=== PATIENT | female | born 2000 | race Caucasian/White ===

== ENCOUNTER 2023-01-17 03:27 | Inpatient (IN) | payer MEDICAID, SELFPAY ==
[2023-01-17] VITALS (41 sets, daily range): BP systolic 98–126; BP diastolic 52–69; PULSE 73–118; RESP 16; TEMP 36.3–37.4; O2SAT 97–99; BMI 23.4
[2023-01-17] MEDS: LACTATED RINGERS 500 ML 999 ML IV (03:45)
--- NOTE | 2023-01-17 03:58 | PCM.HP.OB ---
HPI - General General Date of Admission: 01/17/23 Date of Service: 01/17/23 HPI Narrative VALENTE MAURICE, is a 23 F who presents in labor. She reports leaving a hospital in [facility] as she wanted to be closer to home. Maternal Data Information Final DEBI: 03/04/23 Gestational age: 32&2 PFSH PFSH Medical History no medical history no medical history Home Medications vit no.95-ferrous fumarate 28 mg-folic acid 800 mcg tablet () 1 tab PO DAILY 01/17/23 [History Last Taken Unknown] Allergy/AdvReac Type Severity Reaction Status Date / Time No Known Allergies Allergy Verified 01/17/23 04:09 Social History Smoking Status: Never smoker History Elective abortions Hx Para 0 Spontaneous abortions Hx # Term Pregnancies Ectopic pregnancies Hx # Pregnancies Multiple births # of living children NST FHR Rate Baby A Baseline: 120 Variability:: Moderate Accelerations:: 15 x 15 Decelerations:: None Uterine Activity:: quiet Vital Signs Vital Signs Vital Signs: 01/17/23 03:31 01/17/23 03:31 01/17/23 03:36 Pulse Rate 113 H 117 H Pulse Ox 98 01/17/23 03:36 01/17/23 03:41 01/17/23 03:41 Pulse Rate 115 H Pulse Ox 98 98 01/17/23 03:46 01/17/23 03:46 01/17/23 03:51 Pulse Rate 111 H 118 H Pulse Ox 98 01/17/23 03:51 01/17/23 03:56 01/17/23 03:56 Pulse Rate 102 H Pulse Ox 99 99 Weight Weight: 145 lb 1.027 oz Body Mass Index (BMI) 23.4 Physical Exam Const alert, oriented x3 and no apparent distress Chest inspection of chest normal Resp normal respiratory effort GI soft to palpation, non-tender and non-distended Inspection: gravid external exam normal Narrative: cvx - /0 Labs Labs Labs: Blood Type O POSITIVE Antibody Screen NEGATIVE Hct 37.2 % (37-47) Hgb 12.1 g/dL (12.0-15.0) Syphilis Total Ab Non-reactive Rubella IgG Antibody Reactive (Nonreactive) Hep Bs Antigen Non-Reactive (Nonreactive) HIV 1&2 Antibody Non-Reactive (Nonreactive) Group B Strep DNA POSITIVE (Negative) H Assessment & Plan (1) labor in third trimester: QUALIFIERS: Fetus number: single or unspecified fetus labor delivery status: with delivery in third trimester Qualified Code(s): O60.14X0 - labor third trimester with delivery third trimester, not applicable or unspecified COMMENT: 32&2 PLAN: Plan Admit to L&D GBS unknown - start pcn Expectant management FWB - BMZ#1 given & will given 2nd dose. notified & aware of likely imminent delivery. Obtain records & [place] hospital records
[2023-01-17 04:03] LABS: Bacteria 0 SEEN /hpf (None Seen); Mucous, Urine 0 SEEN /hpf (<or=2+); Squamous Epithelial Cells - UA 0 SEEN /hpf (5-10)
[2023-01-17 04:04] LABS: Absolute Lymphocyte Count 1.17 X10^3/uL (0.83-4.51); Absolute Neutrophil Count 14.8 X10^3/uL (2.0-7.7); Basophil# 0.03 X10^3/uL; Basophil% 0.2 % (0-1); Hematocrit 37.2 % (37-47); Hemoglobin 12.1 g/dL (12.0-15.0); Lymphocyte # 1.17 X10^3/ul (0.83-4.51); Lymphocyte % 6.9 % (19-41); Mean Corp Hgb Conc 32.5 g/dL (32-36); Mean Corpuscular Hgb 29.8 pg (27.0-32.0); Mean Corpuscular Volume 91.6 fL (81-99); Mean Platelet Vol. 10.7 fl (6.2-12.0); Monocyte# 0.75 X10^3/uL; Monocyte% 4.4 % (0-10); NRBC Flagged by Analyzer 0 % (0-5); Neutrophil # 14.82 X10^3/uL (2.7-7.7); Neutrophil % 87.3 % (47-70); Platelet Count 222 K/mm3 (150-450); RBC Distribution Width CV 12.1 % (11.6-14.6); RBC Distribution Width SD 40.6 fl (35.1-43.9); Red Blood Count 4.06 M/mm3 (4.2-5.4)
[2023-01-17 04:09] LABS: Color, Urine Yellow (Yellow); Glucose, Dipstick 1000 mg/dl (Normal); Ketone-Dipstick 15 mg/dl (Negative); Leukocyte Esterase-Dipstick 25 /ul (Negative); Nitrite-Dipstick Negative (Negative); Occult Blood-Urine 250 /ul (Negative); Protein-Dipstick 30 mg/dl (Negative); Specific Gravity, Urine 1.015 (1.002-1.030); Urine Bilirubin Dipstick Negative (Negative); Urine Clarity Clear (Clear); Urine Urobilinogen Normal (Normal); Urine pH 6.5 (5.0 - 8.0)
[2023-01-17 04:31] LABS: Red Blood Cells-Urine 25-50 SEEN /hpf (0-5); White Blood Cells 0-5 SEEN /hpf (0-5)
[2023-01-17 04:33] LABS: Amphetamine Urine VISTA NEGATIVE (<1000 ng/mL); Barbiturate Urine VISTA NEGATIVE (< 200 ng/mL); Benzodiazepine Urine VISTA NEGATIVE (< 200 ng/mL); Cocaine Urine VISTA NEGATIVE (< 300 ng/mL); Ecstacy Urine VISTA NEGATIVE (< 500 ng/mL); Methadone Urine VISTA NEGATIVE (< 300 ng/mL); PCP Urine VISTA NEGATIVE (< 25 ng/mL); THC Urine VISTA NEGATIVE (< 50 ng/mL); Vista UDS pH Range 6
[2023-01-17] MEDS: Lactated Ringers 1,000 ML 200 ML IV ×2 (04:56→07:59)
[2023-01-17] MEDS: Betamethasone/Betamethasone 30 MG/5 ML Vial 12 MG IM (05:04)
[2023-01-17 05:14] LABS: HIV - WCH Non-Reactive (Nonreactive); Rubella IgG Reactive (Nonreactive); Syphilis Antibodies Non-reactive
[2023-01-17 05:15] LABS: Group B Strep DNA By PCR POSITIVE (Negative); Probe Check PASS
[2023-01-17 05:29] LABS: Hepatitis B Surface Antigen Non-Reactive (Nonreactive); Hepatitis C Antibody Non-Reactive (Nonreactive)
[2023-01-17 07:01] LABS: Bedside Glucose 128 mg/dL (74-106)
[2023-01-17 07:06] LABS: Bedside Glucose 113 mg/dL (74-106)
[2023-01-17] MEDS: Oxytocin 15 Units/NS 250ml 15 UNITS/250 ML IV.SOLN 334 UNITS IV (09:17)
[2023-01-17] MEDS: Lidocaine 1% (20 ml mdv) 20 ML Vial INFILT (09:26)
--- NOTE | 2023-01-17 09:31 | EX.PCM.OBRPT ---
Maternal Data Information Final DEBI: 03/11/23 Gestational age: 32&2 Vaginal Delivery Maternal Presentation Maternal Presentation: Active Labor Operative Information Date of Procedure: 01/17/23 Pre-Operative Diagnosis: labor Post-Operative Diagnosis: Same Surgery / Procedure Performed: Spontaneous Vaginal Delivery Type of Anesthesia: Local with 1% Lidocaine Estimated Blood Loss: 300ml Findings Description of Procedure: Patient prepped & draped when C/C/+2. She pushed well to deliver the head. head gently guided to allow delivery of anterior and posterior shoulders. No excess traction placed on head. Body delivered and 3VC clamped & cut in delayed fashion. Placenta delivered with gentle traction and good uterine tone obtained. Presentation: Vertex Amniotic Membrane Rupture Type: Artificial Amniotic Fluid Description: Clear Placental Delivery Description: Expressed Placenta Disposition: [facility] Specimen(s) Removed: Placenta Cord Vessel Description: 3 Vessels Cord Entanglement: True Knot(s) (1 that was loose) A Gender: Male (1 minute): 8 (5 minute): 9 Delayed Cord Clamping: No Post Vaginal Delivery Medications Given After Delivery: IV Pitocin Episiotomy Description: None Laceration: 1st degree (repaired with 3-0 vicryl) Complication Complications: None
[2023-01-17] MEDS: Ketorolac 30 MG/ML Syringe IV (09:38)
--- NOTE | 2023-01-17 10:30 | NURSING ---
1030- IBCLC in room to initiate breast pump. [facility] double breast pump brought to room. Family shown how to use pump, including what settings are appropriate. Pt. pumped both breasts for 15 minutes for first pump session. 3 swabs of colostrum collected. IBCLC then taught and encouraged pt to do hand expression, and an additional 1cc collected. All swabs and syringe taken to in SCN. Pt. encouraged to pump every 3 hours for 15-25 minutes.
--- NOTE | 2023-01-17 15:55 | NURSING ---
patient voided in toilet. unable to assess amount.
[2023-01-18 04:25] VITALS: BP 97/53; PULSE 75; RESP 16; TEMP 37.1
[2023-01-18 04:26] VITALS: BP 97/53; PULSE 75
--- NOTE | 2023-01-18 07:14 | PN.OBGYN_ITS ---
Subjective Subjective Patient seen at bedside. Feeling good. Denies any pain. Desires discharge home today. Objective Data Objective Data Vital Signs: Vital Signs Temp Pulse Resp BP Pulse Ox O2 Del Method 98.8 F 75 16 97/53 L 97 Room Air 01/18/23 04:25 01/18/23 04:26 01/18/23 04:25 01/18/23 04:26 01/17/23 15:52 01/17/23 15:52 Oxygen Delivery Method Room Air Weight: 145 lb 1.027 oz Body Mass Index (BMI) 23.4 Intake & Output: Intake and Output for Last 24 Hours 01/16/23 01/17/23 01/18/23 23:59 23:59 23:59 Intake Total 1735 / 1735 Output Total 300 / 300 Balance 1435 / 1435 Lab / Micro Data 01/17/23 03:45 Micro: Microbiology 01/17/23 05:30 Urine, Clean Catch Chlamydia trachomatis (PCR) - Final 01/17/23 05:30 Urine, Clean Catch Neisseria gonorrhoeae (PCR) - Final ROS Eyes Eyes: Denies blurry vision, change in vision or spots in vision ENT HEENT: Denies dizziness or headache(s) Cardiovascular Cardiovascular: Denies abdominal pain, chest pain or dyspnea Respiratory/Chest Respiratory/Chest: Denies cough, dyspnea, shortness of breath at rest or shortness of breath with exertion Gastrointestinal Gastrointestinal: Denies abdominal pain, diarrhea or vomiting Genitourinary Genitourinary: Denies change in urinary stream, difficulty urinating or dysuria Musculoskeletal Musculoskeletal: Reports none Integumentary Integumentary: Denies rash Neurologic Neurologic: Denies dizziness, headache(s), memory loss or weakness Physical Exam Const alert and no apparent distress General Appearance: cooperative and comfortable Exam Limitations: no limitations HEENT normocephalic Eyes General Eye: normal appearance of both eyes Neck full ROM General: normal visual inspection Chest Chest: symmetrical chest wall rise Resp normal respiratory effort and normal air movement Effort and Inspection: symmetric chest movement Auscultation: clear to auscultation bilaterally Cardio regular rate and regular rhythm GI normal to inspection, nondistended, normoactive bowel sounds Back/Spine normal ROM Extremity full ROM and no calf tenderness General Extremity: normal exam except as noted Skin no rashes or lesions noted Neuro CN's II-XII intact bilaterally Psych mental status grossly normal Assessment & Plan (1) (spontaneous vaginal delivery): (2) delivery: PLAN: Plan PPD 1 Denies any pain Baby at [facility] Desires discharge as soon as possible Family remains at bedside
--- NOTE | 2023-01-18 07:18 | DCINST_ITS ---
Discharge Instructions Diet Discharge Diet: No restrictions Activity Discharge Activity: Return to Normal Activity, May Shower and May Take a Tub Bath May resume sexual activity in: 4-6 weeks Weight Bearing Status: Weight bearing as tolerated Dressing / Incision Call your doctor if you observe: Fever of 101 or Higher, Inability to urinate, Using more than 1 pad per hour, Shortness of breath, Dizziness, Swelling in the ankles, Chest pain, Calf discomfort and Uncontrolled pain Follow Up Care When: 2 weeks follow up with OBGYN for post care Test Results: Test results from this visit will be discussed in further detail at your follow- up appointment, if applicable. Discharge Plan Admission Admit Date/Time: 01/17/23 03:27 Primary Reason for Your Visit: Labor and Delivery Attending Provider: Jose Mustafa Primary Care Provider: Care Physician,Sheila Primary Discharge Orders/Prescriptions Prescriptions: No Action PNV cmb#95-ferrous fumarate-FA [] 28 mg iron- 800 mcg tablet 1 tab PO DAILY Referrals / Follow Up: Care Physician,No Primary [Primary Care Provider] - Disposition Disposition (needs filled in before D/C Order can be placed): Home, Self Care
[2023-01-18 10:03] VITALS: BP 108/56; PULSE 77
[2023-01-18 10:06] VITALS: BP 108/56; PULSE 77; RESP 16; TEMP 37.2; O2SAT 97
--- NOTE | 2023-01-18 11:10 | CASEMGMT ---
Social Work Assessment Labor and Delivery Unit Patient Address:[address] [place] [address]. [place] [address] Phone number: [phone] Date of Referral: 01/17/23 Time of Referral:? 1410 Referred By: Jose Mustafa Date of Intervention: ??01/18/23 Time of Intervention:? 1045 Reason for Referral:? Transfer of to [facility] History obtained from: medical records and mother of baby (ANNY- Zahra)? Household composition: Currently residing at home is MOB and father of baby (FOB- [place]) Patient's parent/guardian status:? MOB reports that she and FOB were for 8 months. MOB states that she and FOB were dating for some time prior to getting . MOB denies abuse/ domestic violence and states that she is safe at home. Medical History: This is first and delivery for ANNY. ANNY was receiving routine care with Tanvi Garnica at [facility]. MOB reports that they were visiting family in [facility] on January 16 when she started to have contractions. ANNY went to local hospital in [place] where she was given medication to slow down progression of labor. MOB reports that they asked the doctors in [place] if it would be safe for her to drive 3 hours to [place] to deliver baby due to neeing NICU. MOB reports that the medical providers in [place] told her it would be ok to leave, however in chart it indicates that MOB left AMA. Baby boy, Swapnil Doll was born on 01/17/23 weighing 2080 grams. His apgars were 8 and 9, he was born at 32 weeks gestation. Swapnil was admitted to [facility] before ultimately being transferred to [facility] NICU. Educational Status: MOB reporst that she and ANGEL both graduated from high school. Denies any college education for either of them. ? Financial Status: ANGEL works at [employer]. He is able to have one week off of work following baby's delivery. Infant Supplies: MOB states that they were able to obtain everything that baby needed including a safe sleep space, car seat, clothes, diapers and wipes. MOB is also pumping and has obtained a breast pump. ? Childcare/Caregiver(s):? MOB is a stay at home mom, she states that she will be the primary caregiver to baby. Parents do have family members who will be able to assist with childcare when necessary. Transportation:?? Both parents have reliable transportation. No barriers at this time. Programs/Agencies Involved: ???MOB denies linkage to community resources. Sw provided MOB with information on [employer] and encouraged her to be receptive to getting connected once baby is ready for discharge from the NICU. Children Services/Legal Issues:??? No history, no issues or concerns warranting referral at this time. Behavioral Health Issues: ?? Mental Health History:??MOB denies mental health history for herself and FOB. Sw provided education on signs and symptoms of baby blues and post depression. Sw also encouraged MOB to find a balance between being at home and being at bedside at NICU. Explained that it is important for her mental health and physical health to take breaks from the bedside. MOB expressed understanding. Substance Use History:?MOB denies substance use, history of and during . Family History:??MOB denies family history of substance use. Drug Screens: ?No drug screens seen in MOB chart. Family/Social Stressors:? MOB denies stressors at this time. Sw explained to MOB that it would be natural to become overwhelmed and anxious due to baby requiring admission to NICU. MOB expressed understanding. Support Systems: MOB states that they have a lot of family who is supportive on both sides. Depression/Shaken Baby/Safe Sleeping: Sw provided information on signs and symptoms of baby blues and post depression. Sw encourarged MOB to follow up with her OBGYN should she start to struggle or experience any of the signs or symptoms discussed. Sw also encouraged MOB to follow up with social work in NICU at main campus. Sw educated MOB to never shake a baby and ABCs of safe sleep. MOB expressed understanding. ASSESSMENT:? MOB at bedside and receptive to sw involvement and support. MOB quiet and does not open up easily. MOB would benefit from ongoing support provided by medical and windows support engineer, especially at NICU. PLAN:? MOB plans to be discharged today. Sw to provide ongoing support as necessary. ?No other services requested or indicated. Alvarez Erwin, WHEAT BUYER, TRAIN STATION AGENT
[2023-01-18 14:04] VITALS: BP 111/62; PULSE 90
[2023-01-18] MEDS: Naproxen 500 MG Tablet PO (14:09)
[2023-01-18 14:43] VITALS: BP 111/62; PULSE 90; RESP 16; TEMP 36.4
== END 2023-01-18 15:40 | disposition home or self-care (01) | DRG 560 ==
LOC: WPOUT 03:28 → WP 03:28 → WPOUT 03:31 → WP 03:31
PROVIDERS: Admitting Provider Obstetrics & Gynecology; Referring Provider Obstetrics & Gynecology; Visit Provider Obstetrics & Gynecology
DX: O60.14X0 Preterm labor third trimester with preterm delivery third trimester, not applicable or unspecified (principal); Z37.0 Single live birth; O69.2XX0 Labor and delivery complicated by other cord entanglement, with compression, not applicable or unspecified; O70.0 First degree perineal laceration during delivery; Z3A.32 32 weeks gestation of pregnancy
CPT/HCPCS: 59025; 59050; 76815; 80307; 81001; 82962; 85025; 86703; 86762; 86780; 86803; 86850; 86900; 86901; 87340; 87491; 87591; 87653; 99221; J7120; G0378; J0702